=== PATIENT | female | born 1995 | race Two or more races ===

== ENCOUNTER → 2016-11-17 | Outpatient (CLI) | payer OTHER ==
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
== END | disposition home or self-care (01) ==
LOC: ADTC.GI 13:24
DX: Z13.89 Encounter for screening for other disorder (principal)